=== PATIENT | male | born 1960 | race Caucasian/White ===

== ENCOUNTER 2024-04-23 11:40 | Outpatient (CLI) | payer OTHER, SELFPAY ==
--- NOTE | ~2024-04-23 | PE_ITS ---
EXAMINATION: PET_PETPSMAST_PT DATE: 04/23/2024 13:46 INDICATION: Prostate cancer. TECHNIQUE: 5.235 mCi of Ga-68 gozetotide was administered intravenously. Low dose computed tomography (CT) images were acquired from the base of the brain to the proximal thighs for attenuation correcti on and anatomic localization. Automated exposure control was employed. Dose-length product (DLP) was 1161 mGy-cm. Positron emission tomography (PET) images were acquired in the same distribution. COMPARISON: None FINDINGS: Head/neck: There are no pathologically enlarged lymph nodes. Chest: The lungs demonstrate mild atelectasis. There is a 5 mm nodule in right middle lobe, likely be nign. No pleural effusion. Abdomen/pelvis/proximal thighs: The liver, gallbladder, spleen, pancreas, adrenal glands, and kidneys are normal. The prostate is moderately enlarged. There is increased activity in the peripheral zone on the right with maximum SUV of 6.1. There is diverticulosis of the colon without evidence of divert iculitis. The appendix is normal. There are no dilated loops of bowel. There are no pathologically en larged lymph nodes. There is no free intraperitoneal fluid. There is no osseous malignancy. IMPRESSION: 1. Moderately enlarged prostate with increased activity in the right peripheral zone, consistent with primary malignancy. No evidence of metastatic disease. Reviewed, dictated and finalized at location B. [employer]
== END 2024-04-23 11:41 | disposition home or self-care (01) ==
PROVIDERS: Visit Provider Urology
DX: C61 Malignant neoplasm of prostate (principal)
CPT/HCPCS: 78815; A9596